=== PATIENT | male | born 2005 | race Caucasian/White ===

== ENCOUNTER 2024-01-15 09:09 | Emergency (ER) | payer BC ==
[2024-01-15] MEDS ORDERED: Sodium Chloride 0.9% 1,000 ML ONE (09:28)
[2024-01-15] MEDS ORDERED: Ondansetron PF 4 MG/2 ML Vial ONE (09:28)
[2024-01-15 10:03] LABS: ALT (SGPT) 31 U/L (8-55); AST (SGOT) 18 U/L (5-34); Albumin 5.2 g/dL (3.5-5.0); Alkaline Phosphatase 79 U/L (50-130); Anion Gap 21 mmol/L (10-20); BUN (Urea Nitrogen) 16 mg/dL (8.9-20.6); Bilirubin, Total 1.3 mg/dL (0.2-1.2); Calc. Creatinine Clearance 0 mL/min (70-130); Calcium 10.4 mg/dL (7.8-10.44); Carbon Dioxide 18 mmol/L (22-29); Chloride 103 mmol/L (98-107); Estimated GFR 99; Globulin 3.3 g/dL (2.4-3.5); Glucose 158 mg/dL (70-105); Lipase 10 U/L (8-78); Potassium 3.9 mmol/L (3.5-5.1); Protein, Total 8.5 g/dL (6.0-8.3); Sodium 138 mmol/L (136-145)
[2024-01-15 10:09] LABS: Hematocrit 52.6 % (42.0-52.0); Hemoglobin 16.8 g/dL (14.0-18.0); Mean Corpuscular HGB CONC 31.9 g/dL (32.0-36.0); Mean Corpuscular Hemoglobin 25.7 pg (25.0-35.0); Mean Corpuscular Volume 80.5 fl (78.0-98.0); Mean Platelet Volume 10.9 fL (7.4-10.4); Platelet Count 236 10x3/uL (130-400); RBC Distribution Width 11.5 % (11.5-14.5); Red Blood Cell (RBC) Count 6.53 mill/uL (4.00-5.20); White Blood Cell (WBC) Count 12.5 10x3/uL (4.8-10.8)
[2024-01-15 10:10] LABS: Band 9 % (5-11); Lymphocytes 4 % (28-48); Monocytes 4 % (0-4); Neutrophil 83 % (31-61)
[2024-01-15 10:11] LABS: Platelet Adequacy Comment Appears Adequate
[2024-01-15 10:19] LABS: MDiff Complete? YES
== END 2024-01-15 11:40 | disposition home or self-care (01) ==
LOC: NAV ERS 09:09
DX: A08.4 Viral intestinal infection, unspecified (principal); F17.290 Nicotine dependence, other tobacco product, uncomplicated
CPT/HCPCS: 80053; 83690; 85025; 96361; 96374; J2405; J7050